=== PATIENT | female | born 1990 | race Two or more races ===

== ENCOUNTER 2023-10-16 11:10 | Emergency (ER) | payer MEDICAID, OTHER ==
[~2023-10-16] VITALS: Ht 172.7 cm; Wt 105.9 kg
[2023-10-16 11:37] LABS: Basophils # (auto) 0 10 ^3/uL (0-0.2); Basophils % (auto) 0.3 % (0.0-2.0); Eosinophils # (auto) 0.1 10 ^3/uL (0-0.8); Eosinophils % (auto) 2.2 % (0.0-7.0); Hematocrit 43.7 % (36.0-46.0); Hemoglobin 14.1 g/dL (12.2-16.2); Lymphocytes # (auto) 1.5 10 ^3/uL (0.4-5.4); Lymphocytes % (auto) 22.9 % (10.0-50.0); Mean Corpuscular Hemoglobin 29.6 pg (28.0-32.0); Mean Corpuscular Hgb Conc. 32.3 g/dL (32.0-36.0); Mean Corpuscular Volume 91.5 fL (80.0-100.0); Monocytes # (auto) 0.9 10 ^3/uL (0-1.3); Monocytes % (auto) 13.8 % (0.0-12.0); Neutrophils # (auto) 4.1 10 ^3/uL (1.6-8.6); Neutrophils % (auto) 60.8 % (37.0-80.0); Nucleated Red Blood Cells % 0.1 %; Red Blood Cells 4.78 10^6/uL (4.0-5.20); Red Cell Distribution Width 14.2 % (11.8-14.3); White Blood Cell 6.7 10^3/uL (4.4-10.8)
[2023-10-16 11:45] LABS: Chloride 106 mmol/L (98-107); Sodium 137 mmol/L (136-145)
[2023-10-16 11:46] LABS: Calcium 9.1 mg/dL (8.5-10.1)
[2023-10-16 11:51] LABS: Blood Urea Nitrogen 9 mg/dL (9-23); Glucose 91 mg/dL (74-106)
[2023-10-16 12:15] VITALS: BP 118/76; PULSE 88; RESP 18; O2SAT 100
[2023-10-16] MEDS: ONDANSETRON ODT 4 MG TAB PO ONE (12:20)
[2023-10-16 12:28] LABS: Anion Gap 3 (5-15); Carbon Dioxide 28 mmol/L (20-30)
[2023-10-16] MEDS: ACETAMINOPHEN 325 MG TAB PO ONE (12:28)
[2023-10-16] MEDS: ONDANSETRON HCL 4 MG/2 ML VIAL IM ONE (12:31)
[2023-10-16 12:58] VITALS: TEMP 98.1
[2023-10-16 13:34] LABS: Rapid Influenza A Negative (Negative); Rapid Influenza B Negative (Negative)
[2023-10-16 13:48] LABS: COVID19 ANTIGEN SOFIA FIA NEGATIVE (NEGATIVE)
[2023-10-16] MEDS ORDERED: ZOFR4T PO (13:57)
[2023-10-16] MEDS ORDERED: ACET500T58 PO (13:57)
== END 2023-10-16 14:18 | disposition home or self-care (01) ==
LOC: ER 11:10
DX: K52.9 Noninfective gastroenteritis and colitis, unspecified (principal); J45.909 Unspecified asthma, uncomplicated; Z20.822 Contact with and (suspected) exposure to COVID-19
CPT/HCPCS: 36415; 80048; 85025; 87426; 87804; 96372; 99283; J2405; Q0162

== ENCOUNTER 2024-03-11 16:36 | Emergency (ER) | payer MEDICAID ==
[~2024-03-11] VITALS: Ht 172.7 cm; Wt 111.7 kg
[~2024-03-11 16:36] MED LIST: ACET500T58 PO; ZOFR4T PO
[2024-03-11 18:36] VITALS: BP 132/75; PULSE 60; RESP 16; TEMP 98.5; O2SAT 100
[2024-03-11] MEDS ORDERED: AUG875T PO (19:06)
[2024-03-11] MEDS ORDERED: NAPR-957 PO (19:06)
[2024-03-11] MEDS: KETOROLAC TROMETH 60MG/2ML VIAL IM ONE (19:29)
[2024-03-11] MEDS: DexAMETHasone SOD PHOS 10MG/1ML VIAL INJ IM ONE (19:30)
[2024-03-11] MEDS ORDERED: ALBUAER3 IN (19:30)
== END 2024-03-11 19:35 | disposition home or self-care (01) ==
LOC: ER 16:36
DX: K02.9 Dental caries, unspecified (principal); R51.9 Headache, unspecified; J45.909 Unspecified asthma, uncomplicated; Z98.890 Other specified postprocedural states; Z79.1 Long term (current) use of non-steroidal anti-inflammatories (NSAID)
CPT/HCPCS: 96372; 99284; J1100; J1885

== ENCOUNTER 2024-06-19 23:19 | Emergency (ER) | payer MEDICAID ==
[~2024-06-19] VITALS: Ht 172.7 cm; Wt 108.0 kg
[~2024-06-19 23:19] MED LIST changes: +ALBUAER3 IN; +AUG875T PO; +NAPR-957 PO
[2024-06-20 00:17] LABS: COVID19 ANTIGEN SOFIA FIA NEGATIVE (NEGATIVE); Rapid Influenza A Negative (Negative); Rapid Influenza B Negative (Negative)
[2024-06-20 01:44] VITALS: BP 116/78; PULSE 86; RESP 20; TEMP 97.9; O2SAT 98
[2024-06-20] MEDS ORDERED: ALBUTEROL SULF 2.5 MG/0.5ML(0.5%) NEB SOLN NEB ONE (01:45)
[2024-06-20] MEDS ORDERED: IPRATROPIUM BROM 0.5 MG/2.5ML INH SOL NEB ONE (01:45)
[2024-06-20] MEDS ORDERED: PRED20TA2 PO (01:51)
[2024-06-20] MEDS ORDERED: AZIT-43 PO (01:51)
[2024-06-20] MEDS ORDERED: ALBUAER3 IN (01:51)
--- NOTE | 2024-06-20 01:54 | ED.PDOC ---
SOB-HPI HPI Comments 34-year-old female presents to ER with complaints of cough x2 days. Patient with past medical history significant for asthma reports she has been experiencing productive cough with yellow/green phlegm, nasal congestion, on/off frontal headache and intermittent fever x2 days. States she has been using her albuterol inhaler without relief. Denies any pain. Patient presents to ER afebrile, ambulatory with steady gait, in no distress. Denies shortness of breath, chest pain, hemoptysis, sore throat, earache, nausea/vomiting or any further symptoms/complaints Chief Complaint: Flu like Time Seen by MD: 23:44 Primary Care Provider: UNKNOWN Reviewed notes: Nurses Notes, Medications, Allergies Information Source: Patient Mode of Arrival: Ambulatory Past Medical History PAST MEDICAL HISTORY: Asthma Surgical History: PAYMENT MANAGER History: No Pertinent PAYMENT MANAGER History Family History Family History: Unknown Social History Smoker: Non-Smoker Alcohol: Occasionally Drugs: Denies Drug Use Lives In: Home Constitutional: reports: others (Asthma) EENTM: reports: others (As stated in HPI) Respiratory: reports: others (As stated in HPI) Cardiovascular: denies: chest pain, dizzy spells, diaphoresis, Dyspnea on exertion, edema, irregular heart beat, left arm pain, lightheadedness, palpitations, PND, syncope, others Gastrointestinal: denies: abdomen distended, abdominal pain, blood streaked bowels, constipated, diarrhea, dysphagia, difficulty swallowing, hematemesis, melena, nausea, poor appetite, poor fluid intake, rectal bleeding, rectal pain, vomiting, others Genitourinary: denies: abnormal vagina bleeding, burning, dyspareunia, dysuria, flank pain, frequency, hematuria, incontinence, pain, , vagina discharge, urgency, others Neurological: reports: others (As stated in HPI) Musculoskeletal: denies: back pain, gout, joint pain, joint swelling, muscle pain, muscle stiffness, neck pain, others Integumetry: denies: bruises, change in color, change in hair/nails, dryness, laceration, lesions, lumps, rash, wounds, others Allergic/Immunocompromised: denies: Difficulty Healing, Frequent Infections, Hives, Itching, others Hematologic/Lymphatic: denies: anemia, blood clots, easy bleeding, easy bruising, swollen glands, others Endocrine: denies: excessive hunger, excessive sweating, excessive thirst, excessive urination, flushing, intolerance to cold, intolerance to heat, unexplained weight gain, unexplained weight loss, others Psychiatric: denies: anxiety, bipolar disorder, depression, hopeless, panic disorder, schizophrenia, sleepless, suicidal, others Physical Exam General Appearance: No Apparent Distress, Obese HEENT: Normal ENT Inspection, PERRL/EOMI, Pharynx Normal, TMs Normal Neck: Full Range of Motion, Non-Tender, Normal Respiratory: Chest Non-Tender, Lungs Clear, No Accessory Muscle Use, No Resp iratory Distress, Wheezing (Mild wheezing noted to bilateral lower lung [place]) Cardiovascular: No Murmur, No Gallop, Regular Rate/Rhythm Breast Exam: Deferred Gastrointestinal: NOT DONE Genitalia: Deferred Pelvic: Deferred Rectal: Deferred Extremities: Normal capillary refill, Normal range of motion Neurologic: Alert, No Motor Deficits, Normal Affect, Normal Mood, No Sensory Deficits Cerebellar Function: Normal Reflexes: Normal Skin: Dry, Normal Color, Warm Peripheral Pulses: 2+ Radial (R), 2+ Radial (L), 2+ Brachial (R), 2+ Brachial (L) Lymphatic: No Adenopathy Was a procedure done? Was a procedure done?: No Sedation Sedation?: No Differential Dx Differential Diagnosis: Pneumonia, Pulmonary Embolism, Respiratory Distress, Other (COVID 19, influenza) X-Ray, Labs, Meds, VS Vital Signs Date Time Temp Pulse Resp B/P (MAP) Pulse Ox O2 Delivery O2 Flow Rate FiO2 06/19/24 23:33 97.8 72 19 111/61 (78) 99 Lab Test 06/19/24 23:31 Range/Units Influenza Type A Antigen Negative Negative Influenza Type B Antigen Negative Negative SARS-CoV-2 Antigen (Rapid) Negative NEGATIVE Influenza A and B reviewed-negative Maria De Jesus reviewed-negative Duo nebulizer treatment ordered Solu-Medrol 125 mg IM ordered Rocephin 1 g IM ordered Patient reported improvement in symptoms and in no distress during ER visit/ prior to discharge Advised to drink plenty of fluids Advised to follow up with PCP in 1-2 days Patient verbalized understanding and agreeable with current plan of care Advised to return to ER immediately if symptoms worsen Time of 1ST Reevaluation: 01:22 Reevaluation 1ST: N/A Patient Education/Counseling: Diagnosis, Treatment, Prognosis, Need For Follow Up Family Education/Counseling: No Family Present Departure 1 Departure Time of Disposition: 01:42 Impression: Primary Impression: Acute asthmatic bronchitis Disposition: 01 HOME / SELF CARE / HOMELESS Condition: Stable e-Prescriptions Albuterol Sulfate (VENTOLIN MDI) 90 Mcg Ih 2 PUFF IN Q4HPRN, #1 INH 0 Refills Prov: JULIA LANE 06/20/24 Acetaminophen (Acetaminophen) 500 Mg Tab 500 MG PO Q4HPRN, #30 TAB 0 Refills Prov: JULIA LANE 06/20/24 Prednisone (Prednisone) 20 Mg Tab 20 MG PO BID for 5 Days, #10 TAB 0 Refills Prov: JULIA LANE 06/20/24 Azithromycin (Azithromycin) 250 Mg Tab 250 MG PO DAILY MDD 500 for 5 Days, #6 TAB 0 Refills 2 TABLETS ORALLY ON DAY ONE, THEN 1 TABLET ORALLY DAILY FOR 4 DAYS Prov: JULIA LANE 06/20/24 Discharged With: Self Critical Care Note Critical Care Time?: No Stability Stability form required: No Heart Score Heart Score: Heart Score Response (Comments) Value History N/A 0 EKG N/A 0 Age N/A 0 Risk Factors N/A 0 Troponin N/A 0 Total [address] Jun 20, 2024 01:54
[2024-06-20] MEDS: methylPREDNISolone SOD SUCC 125 MG/2 ML VL IM ONE (01:55)
[2024-06-20] MEDS: cefTRIAXone SOD 1,000 MG VL IM ONE (01:55)
== END 2024-06-20 02:27 | disposition home or self-care (01) ==
LOC: ER 23:19
DX: J45.909 Unspecified asthma, uncomplicated (principal); Z98.890 Other specified postprocedural states; Z20.822 Contact with and (suspected) exposure to COVID-19
CPT/HCPCS: 36415; 87426; 87804; 94640; 96372; 99284; J0696; J2919

== ENCOUNTER 2024-12-20 23:30 | Emergency (ER) | payer MEDICAID ==
[~2024-12-20] VITALS: Ht 172.7 cm; Wt 115.5 kg
[2024-12-20 23:30] VITALS: BP 105/72; PULSE 67; TEMP 98.2
[~2024-12-20 23:30] MED LIST changes: +AZIT-43 PO; +PRED20TA2 PO
[2024-12-21] MEDS ORDERED: predniSONE 20 MG TAB PO ONE
--- NOTE | 2024-12-21 00:03 | ED.PDOC ---
SOB-HPI HPI Comments 34 year old female presents to the ED with a PMHx of Asthma associated to the c/c of Asthma. Pt states that she had Asthma problems when she was a kid but they subsided in her late teens. But it has since returned since lora Covid-19 during the pandemic. Pt notes of wheezing and SOB with no alleviating factors at this time. Pt denies and N/V/D or any other Sick contact that this period in time. Chief Complaint: Asthma Time Seen by MD: 23:59 Primary Care Provider: UNKNOWN Reviewed notes: Nurses Notes, Medications, Allergies Information Source: Patient Mode of Arrival: Ambulatory Severity: Moderate Timing: Minutes Duration: Since onset, Minutes PE Risk Factors: None History of: Asthma Prehospital treatment: None Modifying Factors: Nothing Associated Signs and Symptoms: None, Wheeze Quality: Pressure Radiation: No Radiation If cough with SOB: Non-Productive Past Medical History PAST MEDICAL HISTORY: Asthma Surgical History: NURSE CHARGE RN History: No Pertinent NURSE CHARGE RN History Family History Family History: Unknown Social History Smoker: Non-Smoker Alcohol: Occasionally Drugs: Denies Drug Use Lives In: Home Constitutional: denies: chills, diaphoresis, fatigue, fever, malaise, sweats, weakness, others EENTM: denies: blurred vision, double vision, ear bleeding, ear discharge, ear drainage, ear pain, ear ringing, eye pain, eye redness, hearing loss, mouth pain, mouth swelling, nasal discharge, nose bleeding, nose congestion, nose pain, photophobia, tearing, throat pain, throat swelling, voice changes, others Respiratory: reports: SOB at rest, shortness of breath, wheezing; denies: cough, hemoptysis, orthopnea, SOB with excertion, stridor, others Cardiovascular: denies: chest pain, dizzy spells, diaphoresis, Dyspnea on exertion, edema, irregular heart beat, left arm pain, lightheadedness, palpitations, PND, syncope, others Gastrointestinal: denies: abdomen distended, abdominal pain, blood streaked bowels, constipated, diarrhea, dysphagia, difficulty swallowing, hematemesis, melena, nausea, poor appetite, poor fluid intake, rectal bleeding, rectal pain, vomiting, others Genitourinary: denies: abnormal vagina bleeding, burning, dyspareunia, dysuria, flank pain, frequency, hematuria, incontinence, pain, , vagina disc harge, urgency, others Neurological: denies: dizziness, fainting, headache, left sided numbness, left sided weakness, numbness, paresthesia, pre-existing deficit, right sided numbness, right sided weakness, seizure, speech problems, tingling, tremors, weakness, others Musculoskeletal: denies: back pain, gout, joint pain, joint swelling, muscle pain, muscle stiffness, neck pain, others Integumetry: denies: bruises, change in color, change in hair/nails, dryness, laceration, lesions, lumps, rash, wounds, others Allergic/Immunocompromised: denies: Difficulty Healing, Frequent Infections, Hives, Itching, others Hematologic/Lymphatic: denies: anemia, blood clots, easy bleeding, easy bruising, swollen glands, others Endocrine: denies: excessive hunger, excessive sweating, excessive thirst, excessive urination, flushing, intolerance to cold, intolerance to heat, unexplained weight gain, unexplained weight loss, others Psychiatric: denies: anxiety, bipolar disorder, depression, hopeless, panic disorder, schizophrenia, sleepless, suicidal, others All Other Systems: Reviewed and Negative Physical Exam General Appearance: Mild Distress, Obese HEENT: Normal ENT Inspection, Pharynx Normal, TMs Normal Neck: Full Range of Motion, Non-Tender, Normal, Normal Inspection Respiratory: No Accessory Muscle Use, No Respiratory Distress, Wheezing Cardiovascular: No Edema, No JVD, No Murmur, No Gallop, Normal Peripheral Pulses, Regular Rate/Rhythm Breast Exam: Deferred Gastrointestinal: No Organomegaly, Non Tender, No Pulsatile Mass, Normal Bowel Sounds, Soft Genitalia: Deferred Pelvic: Deferred Rectal: Deferred Extremities: No calf tenderness, Normal capillary refill, Normal inspection, Normal range of motion, Non-tender, No pedal edema Musculoskeletal : Apperance: Normal Neurologic: Alert, phone counselor II-XII nml as Tested, No Motor Deficits, Normal Affect, Normal Mood, No Sensory Deficits Cerebellar Function: Normal Reflexes: Normal Skin: Dry, Normal Color, Warm Lymphatic: No Adenopathy Was a procedure done? Was a procedure done?: No Differential Dx Differential Diagnosis: Asthma, Bronchitis, CHF, COPD, Hypertension, Pneumonia, Pneumothorax, Pulmonary Embolism, Respiratory Distress, URI, Other X-Ray, Labs, Meds, VS Vital Signs Date Time Temp Pulse Resp B/P (MAP) Pulse Ox O2 Delivery O2 Flow Rate FiO2 12/21/24 00:10 18 100 Room Air* 0 21 21 12/20/24 23:30 98.2 67 20 105/72 (83) 99 98.2 Current Medications Medications (Trade) Dose Ordered Sig/Malik Route Start Time Stop Time Status Last Admin Albuterol (Ventolin Medneb) 5 mg ONCE ONCE HHN 12/21/24 00:00 12/21/24 00:02 DC 12/21/24 00:21 Ipratropium Wana (Atrovent Medneb) 0.5 mg ONCE ONCE HHN 12/21/24 00:00 12/21/24 00:02 DC 12/21/24 00:21 Time of 1ST Reevaluation: 00:30 Reevaluation 1ST: Unchanged Patient Education/Counseling: Diagnosis, Treatment Family Education/Counseling: No Family Present Departure 1 Departure Time of Disposition: 02:30 Impression: Primary Impression: Acute asthma Disposition: 01 HOME / SELF CARE / HOMELESS Condition: Stable Discharged With: Self Critical Care Note Critical Care Time?: No Stability Stability form required: No Heart Score Heart Score: Heart Score Response (Comments) Value History N/A 0 EKG N/A 0 Age N/A 0 Risk Factors N/A 0 Troponin N/A 0 Total 0 I personally scribed for GENOVEVA MASTERS MD ([email or web address]) on 12/21/24 at 00:03. Electronically submitted by Shabbir Fenton ([email or web address]). GENOVEVA MASTERS MD December 21, 2024 00:03
[2024-12-21 00:10] VITALS: RESP 18; O2SAT 100
[2024-12-21] MEDS: ALBUTEROL SULF 2.5 MG/0.5ML(0.5%) NEB SOLN NEB ONE (00:21)
[2024-12-21] MEDS: ALBUTEROL SULF 2.5 MG/0.5ML(0.5%) NEB SOLN HHN ONE (00:21)
[2024-12-21] MEDS: IPRATROPIUM BROM 0.5 MG/2.5ML INH SOL HHN ONE (00:21)
[2024-12-21] MEDS: IPRATROPIUM BROM 0.5 MG/2.5ML INH SOL NEB ONE (00:21)
== END 2024-12-21 03:02 | disposition home or self-care (01) ==
LOC: ER 23:30
DX: J45.909 Unspecified asthma, uncomplicated (principal)
CPT/HCPCS: 94640